=== PATIENT | female | born 1975 | race Caucasian/White ===

== ENCOUNTER → 2018-01-01 | Outpatient (CLI) | payer BC ==
[~2018-01-01] MED LIST: LEVOTHYROXINE PO
== END ==
LOC: MC.RAD 14:14
DX: Z12.31 Encounter for screening mammogram for malignant neoplasm of breast (principal); N63.31 Unspecified lump in axillary tail of the right breast; R92.0 Mammographic microcalcification found on diagnostic imaging of breast

== ENCOUNTER → 2018-01-04 | Outpatient (CLI) | payer BC | LOC: MC.RAD 13:19 | DX: N60.01 Solitary cyst of right breast (principal); R92.0 Mammographic microcalcification found on diagnostic imaging of breast | CPT/HCPCS: G0279 ==

== ENCOUNTER → 2018-01-24 | Outpatient (CLI) | payer BC | LOC: MC.RAD 09:53 | DX: R92.1 Mammographic calcification found on diagnostic imaging of breast (principal); Z98.82 Breast implant status ==

== ENCOUNTER 2018-02-23 07:08 | Day surgery (SDC) | payer BC ==
[~2018-02-23] VITALS: Ht 167.6 cm; Wt 66.4 kg
[2018-02-23 08:37] VITALS: BP 122/87; PULSE 79; TEMP 98
[2018-02-23] MEDS ORDERED: SYNTHROID0.2 MG/TAB PO (08:45)
[2018-02-23] MEDS ORDERED: SYNTHROID0.175 MG PO (08:46)
[2018-02-23 11:32] VITALS: BP 100/60; PULSE 66; TEMP 97.5
[2018-02-23 11:45] VITALS: BP 102/63; PULSE 74
[2018-02-23] MEDS ORDERED: NORCO 325 MG-51 TAB PO (11:50)
== END 2018-02-23 12:20 | disposition home or self-care (01) ==
LOC: SDCO 07:08
DX: N60.91 Unspecified benign mammary dysplasia of right breast (principal); E05.00 Thyrotoxicosis with diffuse goiter without thyrotoxic crisis or storm; Z79.899 Other long term (current) drug therapy; D64.9 Anemia, unspecified
CPT/HCPCS: J0690; J1100; J1885; J2250; J2405; J2704; J3010; J7120

== ENCOUNTER → 2019-04-02 | Outpatient (CLI) | payer OTHER ==
[~2019-04-02] MED LIST changes: +NORCO 325 MG-51 TAB PO; +SYNTHROID0.175 MG PO; +SYNTHROID0.2 MG/TAB PO
== END ==
LOC: MC.RAD 11:43
DX: Z12.31 Encounter for screening mammogram for malignant neoplasm of breast (principal); Z98.82 Breast implant status

== ENCOUNTER → 2020-04-03 | Outpatient (CLI) | payer OTHER | LOC: MC.RAD 09:09 | DX: Z12.31 Encounter for screening mammogram for malignant neoplasm of breast (principal); Z98.890 Other specified postprocedural states ==

== ENCOUNTER → 2021-05-19 | Outpatient (CLI) | payer OTHER | LOC: MC.RAD 14:41 | DX: Z12.31 Encounter for screening mammogram for malignant neoplasm of breast (principal) ==

== ENCOUNTER → 2023-07-19 | Outpatient (CLI) | payer BC | LOC: MC.RAD 09:08 | DX: Z12.31 Encounter for screening mammogram for malignant neoplasm of breast (principal) ==